=== PATIENT | male | born 1980 | race Two or more races ===

== ENCOUNTER 2020-11-11 07:10 | Day surgery (SDC) | payer OTHER | END 2020-11-11 10:55 | disposition home or self-care (01) | LOC: AMB-ENDOS 07:10 | PROVIDERS: ATTEND Surgery | DX: K62.89 Other specified diseases of anus and rectum (principal); K64.2 Third degree hemorrhoids; Z12.11 Encounter for screening for malignant neoplasm of colon ==

== ENCOUNTER 2021-06-11 06:00 | Day surgery (SDC) | payer OTHER ==
[~2021-06-11 06:00] MED LIST: OMEGA 3 1,0001 EACH PO
[2021-06-11] MEDS ORDERED: KETO10TA2 PO (09:33)
[2021-06-11] MEDS ORDERED: NEURONTIN300 MG PO (09:34)
[2021-06-11] MEDS ORDERED: DERMOPLAST PAIN78 GM TOP (09:35)
[2021-06-11] MEDS ORDERED: PERCOCET 5-3251 EACH PO (09:37)
== END 2021-06-11 19:25 | disposition home or self-care (01) ==
LOC: CIR.AMB 06:00
PROVIDERS: ATTEND Surgery
DX: K64.2 Third degree hemorrhoids (principal); K62.5 Hemorrhage of anus and rectum; K60.1 Chronic anal fissure; Z87.891 Personal history of nicotine dependence; R20.2 Paresthesia of skin